=== PATIENT | male | born 1990 | race Caucasian/White ===

== ENCOUNTER → 2019-04-07 09:52 | Outpatient (CLI) | payer OTHER, SELFPAY ==
--- NOTE | 2019-04-07 09:52 | TONS_PTH ---
PATIENT: AMINAH AVILA LOC: [facility] U#:[id number] AGE/SX: 34/M ROOM: RE04/07/[address]: Dr. Ha Breaux MD : 1990 BED: DIS: SPEC #: [id number] RECD: 04/07/19 15:04 STATUS: SEBLE LAUREN #: [id number] SAMINA: 04/07/19 09:[address]: Ha Breaux DEPT: SURGICAL PATHOLOGY RECD BY: Robert Palacios ENTERED: 04/08/19 13:33 SP TYPE: TONSILS OTHR DR: YASMIN Tissues: Tonsil, NOS Procedures: Surgery Specimen Level III HEADER OPERATION: Tonsillectomy PRE-OP DIAGNOSIS: Chronic tonsillitis TISSUE SUBMITTED: Tonsils, right pinned MICROSCOPIC DIAGNOSIS Right and left tonsils, bilateral tonsillectomies: Benign lymphoid hyperplasia, consistent with chronic tonsillitis. AM:anisa 04/09/19 MICROSCOPIC DESCRIPTION Slides are reviewed. GROSS DESCRIPTION Received is one container labeled with the patient's name and designated tonsils - pin on right are two tonsils that in aggregate weigh 6.1 gm. The right tonsil has a pin on it and measures 8 x 2 x 1 cm. The left tonsil measures 8 x 1.5 x 1.2 cm. Both tonsils are similar in appearance. The external surfaces are pink-pepe, smooth, glistening and somewhat lobulated. Focally they are hemorrhagic, granular and bear cautery artifact. Serial cross sections through the tonsils reveal normal tonsillar architecture. Sections are submitted in two cassettes as follows: 1 - right tonsil, 2 - left tonsil. / LINDA:anisa 04/08/19 TC:5 [facility]: [id number] x2
== END ==
PROVIDERS: Referring Provider Otolaryngology; Visit Provider Otolaryngology
DX: J35.01 Chronic tonsillitis (principal)
CPT/HCPCS: 88304